=== PATIENT | male | born 1995 | race Caucasian/White ===

== ENCOUNTER 2019-01-04 16:37 | Emergency (ER) | payer SELFPAY ==
[~2019-01-04] VITALS: Ht 180.3 cm; Wt 83.0 kg
[2019-01-04 16:41] VITALS: BP 123/78; Ht 180.3 cm; Wt 83.0 kg
[2019-01-04 18:04] LABS: BASOPHIL % 0.2 % (0-2); PLATELET COUNT 194 x10^3mcL (130-400); RED CELL DISTRIBUTION WIDTH 13.9 % (11.5-14.5)
[2019-01-04 18:15] LABS: CALCIUM 8.9 mg/dL (8.5-10.1); CARBON DIOXIDE 28.5 mmol/L (21-32); CHLORIDE SERUM 102 mmol/L (98-107); GFR1 > 60 mL/min; GLUCOSE SERUM 98 mg/dL (74-106); POTASSIUM SERUM 3.8 mmol/L (3.5-5.1); SODIUM SERUM 142 mmol/L (136-145)
== END 2019-01-04 19:34 | disposition home or self-care (01) ==
LOC: ED 16:37
PROVIDERS: Emergency Medicine
DX: G44.209 Tension-type headache, unspecified, not intractable (principal); R42 Dizziness and giddiness
CPT/HCPCS: 36415; J0780; J7030; Q0163